=== PATIENT | female | born 1990 | race Caucasian/White ===

== ENCOUNTER 2017-05-21 13:22 | Inpatient (IN) | payer MEDICAID ==
[~2017-05-21] VITALS: Ht 170.2 cm; Wt 61.4 kg
[2017-05-21 15:43] VITALS: BP 109/50
[2017-05-21] MEDS ORDERED: HALOPERIDOL 5 MG TABLET PO PRN (16:00)
[2017-05-21] MEDS ORDERED: LORazepam 1 MG TABLET PO PRN (16:00)
[2017-05-21] MEDS ORDERED: PNEUMOCOCCAL VACCINE POLYVALENT 0.5 ML VIAL [PPSV23] IM ONE (16:45)
[2017-05-21 17:17] VITALS: BP 120/67
[2017-05-21] MEDS ORDERED: ALBUTEROL SULFATE HFA 90 MCG/PUFF 8 GM INHALER IH PRN (17:30)
[2017-05-21] MEDS: ZOLPIDEM TARTRATE 10 MG TABLET PO PRN (20:57)
[2017-05-22 06:52] VITALS: BP 112/77
[2017-05-22 08:43] VITALS: BP 100/57
[2017-05-22 09:40] LABS: BASOPHILS % (AUTO) 0.6 % (0.0-2.0); EOSINOPHILS % (AUTO) 1.8 % (1.0-6.0); HEMOGLOBIN 12.5 g/dL (12.0-16.0); LYMPHOCYTES # (AUTO) 2.6 K/uL (1.0-4.8); LYMPHOCYTES % (AUTO) 41.9 % (22.0-44.0); MEAN CORPUSCULAR HEMOGLOBIN 30.9 pg (26.0-34.0); MEAN CORPUSCULAR HGB CONC 34.6 G/dL (31.0-37.0); MEAN CORPUSCULAR VOLUME 89 fL (80-100); MONOCYTES # (AUTO) 0.7 K/uL (0.1-1.0); MONOCYTES % (AUTO) 11.3 % (2.0-9.0); NEUTROPHILS # (AUTO) 2.8 K/uL (1.8-7.7); NEUTROPHILS % (AUTO) 44.4 % (40.0-70.0); PLATELET COUNT (AUTO) 219 K/uL (150-450); RED BLOOD CELL COUNT(AUTO) 4.04 MIL/uL (4.00-5.20); RED CELL DISTRIBUTION WIDTH 12.9 % (11.5-14.5)
[2017-05-22 10:31] LABS: ALANINE AMINOTRANSFERASE 19 U/L (12-78); ALBUMIN 3.6 g/dL (3.4-5.0); ALKALINE PHOSPHATASE 67 U/L (46-116); ANION GAP 10 mmol/L (8-16); ASPARTATE AMINOTRANSFERASE 9 U/L (15-37); BILIRUBIN,TOTAL 0.4 mg/dL (0.1-1.0); CARBON DIOXIDE 28 mmol/L (22-29); CHLORIDE 103 mmol/L (98-107); CHOL/HDL RATIO 3.2 (3.9-5.7); CHOLESTEROL 235 mg/dL (131-200); CREATININE 0.83 mg/dL (0.60-1.30); FREE T4 (FREE THYROXINE) 0.71 ng/dL (0.76-1.46); GLOMERULAR FILTR. RATE CALC > 60 mL/min (>60); GLUCOSE,RANDOM 101 mg/dL (70-110); HCG,QUANTITATIVE < 1 mIU/mL (0-6); HDL CHOLESTEROL 74 mg/dL (40-60); LDL CHOL (CALC.) 139 mg/dL (0-130); POTASSIUM 3.9 mmol/L (3.5-5.1); SODIUM SERUM 141 mmol/L (136-145); THYROID STIMULATING HORMONE 2.66 uIU/mL (0.36-3.74); TOTAL PROTEIN, SERUM 7.1 g/dL (6.4-8.2); TRIGLYCERIDES 111 mg/dL (15-150); UREA NITROGEN, BLOOD 15 mg/dL (7-18)
[2017-05-22 15:57] LABS: HEMOGLOBIN A1C 5.4 % (4.5-6.2)
[2017-05-22 16:00] VITALS: BP 110/57
[2017-05-22] MEDS ORDERED: ACETAMINOPHEN 325 MG TABLET PO PRN (16:45)
[2017-05-22] MEDS ORDERED: IBUPROFEN 400 MG TABLET PO PRN (16:45)
[2017-05-22] MEDS: RisperiDONE 1 MG TABLET PO SCH (20:11)
[2017-05-22] MEDS: ZOLPIDEM TARTRATE 10 MG TABLET PO PRN (21:26)
[2017-05-23 08:40] VITALS: BP 117/80
[2017-05-23 16:00] VITALS: BP 118/70
[2017-05-23] MEDS: RisperiDONE 1 MG TABLET PO SCH (20:04)
[2017-05-24 03:48] VITALS: BP 115/82
[2017-05-24 08:17] VITALS: BP 102/72
[2017-05-24] MEDS ORDERED: RISP1 PO ×2 (11:25→12:09)
== END 2017-05-24 13:30 | disposition home or self-care (01) | DRG 750 ==
LOC: B3A 16:25 → B2S 05-23 15:00
DX: F25.1 Schizoaffective disorder, depressive type (principal); R45.851 Suicidal ideations; E78.5 Hyperlipidemia, unspecified; F10.10 Alcohol abuse, uncomplicated; M54.5 Low back pain; F19.10 Other psychoactive substance abuse, uncomplicated; J45.909 Unspecified asthma, uncomplicated; Z71.41 Alcohol abuse counseling and surveillance of alcoholic; Z71.51 Drug abuse counseling and surveillance of drug abuser; Z79.899 Other long term (current) drug therapy
CPT/HCPCS: 83036; 84439; 84443; 87081

== ENCOUNTER 2019-02-16 09:56 | Emergency (ER) | payer MEDICAID ==
[~2019-02-16] VITALS: Ht 172.7 cm; Wt 77.3 kg
[~2019-02-16 09:56] MED LIST: RISP1 PO
[2019-02-16] MEDS ORDERED: ARIP10TA8 PO (10:08)
[2019-02-16] MEDS ORDERED: CYCLOBENZAPRINE HCL 10 MG TABLET PO ONE (10:45)
[2019-02-16] MEDS ORDERED: LIDOCAINE 5% TRANSDERMAL PATCH TD ONE (10:45)
[2019-02-16 11:32] VITALS: BP 124/76
== END 2019-02-16 11:10 | disposition home or self-care (01) ==
LOC: EMS 09:57
DX: M54.5 Low back pain (principal); R07.89 Other chest pain; F20.9 Schizophrenia, unspecified